=== PATIENT | male | born 1980 | race Caucasian/White ===

== ENCOUNTER → 2017-12-24 | Outpatient (REF) | payer BC | LOC: M SMT 13:20 | DX: Z30.2 Encounter for sterilization (principal) | CPT/HCPCS: 88302 ==

== ENCOUNTER → 2018-04-24 | Outpatient (REF) | payer BC ==
[2018-04-24 10:19] LABS: IMMMOTILE SPERM CENTRIFUGED ABSENT (ABSENT); IMMOTILE SPERM ABSENT (ABSENT); MOTILE SPERM ABSENT (ABSENT); MOTILE SPERM CENTRIFUGED ABSENT (ABSENT); SEMEN APPEARANCE OPAQUE (OPAQUE); SEMEN VISCOSITY LIQUID (LIQUID); SPERM ABNORMAL FORMS WBC'S NOTED; WBC CONCENTRATION <=1 M/ml (<=1 M/ml)
== END ==
LOC: M SMT 10:16
DX: Z98.52 Vasectomy status (principal)
CPT/HCPCS: 89321

== ENCOUNTER → 2020-09-25 | Outpatient (CLI) | payer SELFPAY | LOC: M LABSMTC 17:57 | PROVIDERS: ATTEND Pediatrics | DX: Z20.828 Contact with and (suspected) exposure to other viral communicable diseases (principal) ==

== ENCOUNTER 2021-05-23 11:37 | Emergency (ER) | payer BC ==
[~2021-05-23] VITALS: Ht 172.7 cm; Wt 77.6 kg
[2021-05-23] MEDS ORDERED: ZYRTTAB8 PO (11:45)
[2021-05-23] MEDS ORDERED: ALEV220T22 PO (11:45)
[2021-05-23] MEDS ORDERED: ACET-683 PO (11:45)
[2021-05-23] MEDS ORDERED: CYCL-707 PO (13:57)
[2021-05-23] MEDS ORDERED: MEDR4PAK PO (13:57)
[2021-05-23 14:43] VITALS: BP 135/69
== END 2021-05-23 14:45 | disposition home or self-care (01) ==
LOC: M ED 11:37
DX: S39.012A Strain of muscle, fascia and tendon of lower back, initial encounter (principal); M62.830 Muscle spasm of back; X58.XXXA Exposure to other specified factors, initial encounter; Y92.9 Unspecified place or not applicable; Y93.9 Activity, unspecified; Y99.9 Unspecified external cause status; Z88.8 Allergy status to other drugs, medicaments and biological substances

== ENCOUNTER → 2021-10-11 | Outpatient (CLI) | payer BC ==
[~2021-10-11] MED LIST: ACET-683 PO; ALEV220T22 PO; CYCL-707 PO; MEDR4PAK PO; ZYRTTAB8 PO
--- NOTE | 2021-10-11 08:25 | REP ---
INDICATION: ELEVATED LFTS. COMPARISON: None. TECHNIQUE: Real-time sonographic evaluation of right upper quadrant performed. FINDINGS: The gallbladder demonstrates no evidence of intraluminal sludge or calculi, wall thickening or pericholecystic fluid. There is no intrahepatic or extrahepatic biliary dilatation, common bile duct measures 5 mm in maximum diameter. The liver demonstrates homogeneous echotexture with no gross mass. The pancreas demonstrates homogeneous echotexture with no gross mass. The right kidney demonstrates no hydronephrosis, with a normal size of 10.8 cm in length. No free fluid is seen. IMPRESSION: Negative right upper quadrant ultrasound. <Electronically signed by Norberto Dent > 10/11/21 [id number]
== END ==
LOC: M RAD 07:24
PROVIDERS: ATTEND Internal Medicine
DX: R74.8 Abnormal levels of other serum enzymes (principal)

== ENCOUNTER → 2022-12-25 | Outpatient (CLI) | payer BC, OTHER | LOC: M RAD 06:55 | PROVIDERS: ATTEND Internal Medicine | DX: K76.0 Fatty (change of) liver, not elsewhere classified (principal) ==

== ENCOUNTER → 2024-11-30 | Outpatient (REF) | payer OTHER ==
[2024-11-30 14:40] LABS: HEPATITIS B SURFACE ANTIGEN NEGATIVE (NEGATIVE)
[2024-11-30 15:02] LABS: HEPATITIS C VIRUS ABY INDEX 0.12 INDEX (<0.8)
== END ==
LOC: M LAB REF 12:20
PROVIDERS: ATTEND Internal Medicine
DX: R74.8 Abnormal levels of other serum enzymes (principal)